=== PATIENT | female | born 2000 | race Caucasian/White ===

== ENCOUNTER 2022-09-03 21:00 | Emergency (ER) | payer OTHER ==
[~2022-09-03] VITALS: Ht 160 cm; Wt 72.0 kg
[2022-09-03 21:14] VITALS: BP 137/68
[2022-09-03] MEDS ORDERED: DOXYCYCLINE HYCLATE 100MG CAPSULE PO ONE (23:00)
[2022-09-03] MEDS ORDERED: CEFTRIAXONE SODIUM 500 MG/VIAL IM ONE (23:00)
[2022-09-04 00:34] LABS: CLARITY URINE TURBID (CLEAR); COLOR URINE ORANGE (YELLOW); KETONES URINE 2+ (NEGATIVE); LEUKOCYTE ESTERASE URINE 1+ (NEGATIVE); NITRITE URINE NEGATIVE (NEGATIVE); OCCULT BLOOD URINE NEGATIVE (NEGATIVE); PH URINE 5.5 (4.5-8.0); PROTEIN URINE 1+ (NEGATIVE); SPECIFIC GRAVITY URINE 1.032 (1.005-1.030); UROBILINOGEN URINE 0.2 E.U./dL (0.2-1.0)
[2022-09-04] MEDS ORDERED: IBUP-2029 MT (02:34)
[2022-09-04] MEDS ORDERED: DOXY-326 MT (02:34)
[2022-09-06 09:09] LABS: HIV SCREEN 4G Non Reactive (Non Reactive)
[2022-09-07 04:09] LABS: NEISSERIA GONORRHOEAE NAA Negative (Negative)
== END 2022-09-04 02:58 | disposition home or self-care (01) ==
LOC: ER 21:18
DX: N76.4 Abscess of vulva (principal); N76.0 Acute vaginitis
CPT/HCPCS: 81003; 81025; 86592; 86694; 86695; 86696; 87210; 87389; 87491; 87591; 96372; 99284; J0696